=== PATIENT | female | born 1985 | race Caucasian/White ===

== ENCOUNTER 2017-03-05 07:14 | Inpatient (IN) ==
[2017-03-05] MEDS ORDERED: LACTATED RINGERS 1,000 ML IV ONE ×2 (07:45→12:55)
[2017-03-05] MEDS ORDERED: FAMOTIDINE 20 MG/2 ML VIAL IV ONE (08:07)
[2017-03-05] MEDS ORDERED: ceFAZolin 2,000 MG in PREMIX 1 EACH IV ONE (08:07)
[2017-03-05] MEDS ORDERED: CITRIC ACID/SODIUM CITRATE 30 ML UDCUP PO ONE (08:07)
[2017-03-05] MEDS ORDERED: OXYTOCIN 10 UNIT/ML VIAL IM ONE (08:11)
[2017-03-05] MEDS ORDERED: OXYTOCIN/LR 30 UNIT/1,000 ML BAG IV ONE (08:11)
[2017-03-05] MEDS ORDERED: LACTATED RINGERS 1,000 ML IV SCH ×2 (08:30→14:00)
[2017-03-05 08:46] LABS: Basophils # 0.1 10*3/uL (0.0-0.2); Basophils % 0.4 % (0.0-0.8); Eosinophils % 0.2 % (0.00-10.9); Hematocrit 32.1 VOL% (35.7-47.0); Hemoglobin 11.2 GM/DL (12.0-16.0); Immature Granulocytes % 0.8 %; Lymphocytes # 2.2 10*3/uL (1.4-4.0); Lymphocytes % 16.5 % (21.3-54.2); Mean Corpuscular HGB Conc 34.9 GM/DL (32-36); Mean Corpuscular Hemoglobin 32 PG (27-34); Mean Corpuscular Volume 92.5 FL (87-102); Mean Platelet Volume 10.8 FL (9.6-12.0); Monocytes # 0.9 10*3/uL (0.11-0.8); Monocytes % 6.9 % (1.7-12.7); Neutrophils # 9.9 10*3/uL (1.4-7.4); Neutrophils % 75.2 % (38.7-73.9); Platelet Count 310 T/CUMM (130-400); Red Blood Count 3.47 MC/CUMM (3.8-5.5); Red Cell Distribution Width 13.2 % (9.3-17.3); White Blood Count 13.2 T/CUMM (4-12)
[2017-03-05 09:12] LABS: Albumin 2.7 G/DL (3.4-5.0); Bilirubin,Total 0.4 MG/DL (0.2-1.0); Calcium 8.7 MG/DL (8.5-10.1); Osmolality,Calculated 269.8 MOS/KG (273-304); Potassium 3.8 MMOL/L (3.5-5.1); Total Protein 6.8 G/DL (6.4-8.3)
[2017-03-05] MEDS ORDERED: fentaNYL 100 MCG/2 ML VIAL ONE (10:31)
[2017-03-05] MEDS ORDERED: MORPHINE 10 MG/10 ML VIAL ONE (10:32)
[2017-03-05] MEDS ORDERED: ONDANSETRON 4 MG/2 ML VIAL ONE (10:33)
[2017-03-05] MEDS ORDERED: OXYTOCIN/LR 20 UNIT/1,000 ML BAG IV ONE ×2 (10:38→14:00)
[2017-03-05] MEDS ORDERED: ACETAMINOPHEN 325 MG TABLET PO PRN ×2 (10:38→14:00)
[2017-03-05] MEDS ORDERED: RHO(D) IMMUNE GLOBULIN 300 MCG SYRINGE IM ONE ×2 (10:38→14:00)
[2017-03-05] MEDS ORDERED: SIMETHICONE CHEW 80 MG TABLET PO PRN ×2 (10:38→14:00)
[2017-03-05] MEDS ORDERED: ONDANSETRON 4 MG/2 ML VIAL IV PRN ×2 (10:38→14:00)
[2017-03-05 10:48] LABS: Cord Arterial Blood HCO3 18.3 MMOL/L
[2017-03-05 10:51] LABS: Cord Venous Blood HCO3 20.6 MMOL/L; Cord Venous Blood PCO2 37.7 MMHG; Cord Venous Blood PO2 21.2
[2017-03-05 10:57] LABS: Cord Arterial Blood HCO3 20.9 MMOL/L
[2017-03-05 11:00] LABS: Cord Venous Blood PCO2 39.1 MMHG; Cord Venous Blood PO2 20.3
[2017-03-05 11:03] LABS: Apearance,Urine CLEAR (Clear); Bilirubin,Urine Negative (Negative); Blood, Urine Negative (Negative); Glucose,Urine (UA) Negative (Negative); Ketones,Urine Negative (Negative); Mucus,Urine Occasional /LPF (Occasional); Nitrite,Urine Negative (Negative); Protein,Urine Negative; Squamous Epithelial Cell,Urine Occasional /HPF (0-10); Urine Color Yellow (Yellow); Urine Specific Gravity 1.011 (1.001-1.035); WBC,Urine 1 /HPF (0-6)
[2017-03-05] MEDS ORDERED: ePHEDrine 50 MG/ML AMP ONE (11:46)
[2017-03-05] MEDS ORDERED: ePHEDrine 50 MG/ML AMP IV ONE (11:55)
[2017-03-05] MEDS: LACTATED RINGERS 1,000 ML IV SCH ×2 (13:16→19:20)
[2017-03-05] MEDS ORDERED: IBUPROFEN 800 MG TABLET PO PRN (14:00)
[2017-03-05] MEDS ORDERED: MAGNESIUM HYDROXIDE SUSP 30 ML UDCUP PO PRN (14:00)
[2017-03-05] MEDS: IBUPROFEN 800 MG TABLET PO PRN (17:41)
[2017-03-05] MEDS: ceFAZolin 1,000 MG in SYRINGE 1 EACH IV SCH (17:42)
[2017-03-05 20:37] LABS: Basophils % 0.2 % (0.0-0.8); Eosinophils % 0.1 % (0.00-10.9); Hematocrit 19.5 VOL% (35.7-47.0); Hemoglobin 6.8 GM/DL (12.0-16.0); Immature Granulocytes % 0.6 %; Immature Granulocytes Absolute 0.09 #; Lymphocytes # 2.4 10*3/uL (1.4-4.0); Lymphocytes % 16.6 % (21.3-54.2); Mean Corpuscular HGB Conc 34.9 GM/DL (32-36); Mean Corpuscular Hemoglobin 32 PG (27-34); Mean Corpuscular Volume 92.4 FL (87-102); Mean Platelet Volume 10.5 FL (9.6-12.0); Monocytes # 1.1 10*3/uL (0.11-0.8); Monocytes % 7.4 % (1.7-12.7); Neutrophils # 10.8 10*3/uL (1.4-7.4); Neutrophils % 75.1 % (38.7-73.9); Platelet Count 215 T/CUMM (130-400); Red Blood Count 2.11 MC/CUMM (3.8-5.5); Red Cell Distribution Width 13.2 % (9.3-17.3); White Blood Count 14.4 T/CUMM (4-12)
[2017-03-05] MEDS ORDERED: DOCUSATE SODIUM 100 MG CAPSULE PO SCH (21:00)
[2017-03-05] MEDS ORDERED: SODIUM CHLORIDE 0.9% 1,000 ML IV PRN (21:08)
[2017-03-06] MEDS: IBUPROFEN 800 MG TABLET PO PRN ×3 (01:22→19:54)
[2017-03-06] MEDS: ceFAZolin 1,000 MG in SYRINGE 1 EACH IV SCH (01:23)
[2017-03-06] MEDS: DOCUSATE SODIUM 100 MG CAPSULE PO SCH ×4 (04:37→21:02)
[2017-03-06 07:54] LABS: Basophils % 0.2 % (0.0-0.8); Eosinophils % 0.1 % (0.00-10.9); Hematocrit 23.9 VOL% (35.7-47.0); Hemoglobin 8.5 GM/DL (12.0-16.0); Immature Granulocytes % 0.8 %; Immature Granulocytes Absolute 0.09 #; Lymphocytes # 1.5 10*3/uL (1.4-4.0); Lymphocytes % 12.7 % (21.3-54.2); Mean Corpuscular HGB Conc 35.6 GM/DL (32-36); Mean Corpuscular Hemoglobin 32 PG (27-34); Mean Corpuscular Volume 91.2 FL (87-102); Mean Platelet Volume 10.1 FL (9.6-12.0); Monocytes # 1.2 10*3/uL (0.11-0.8); Neutrophils # 8.8 10*3/uL (1.4-7.4); Neutrophils % 76.2 % (38.7-73.9); Platelet Count 177 T/CUMM (130-400); Red Blood Count 2.62 MC/CUMM (3.8-5.5); Red Cell Distribution Width 13.9 % (9.3-17.3); White Blood Count 11.5 T/CUMM (4-12)
[2017-03-06] MEDS: FERROUS SULFATE 325 MG TABLET PO SCH ×3 (08:48→21:02)
[2017-03-06] MEDS: MAGNESIUM HYDROXIDE SUSP 30 ML UDCUP PO PRN ×2 (08:48→19:54)
[2017-03-06] MEDS: MULTIVITAMIN (PRENATAL) TABLET PO SCH (08:48)
[2017-03-06] MEDS ORDERED: MULTIVITAMIN (PRENATAL) TABLET PO SCH (09:00)
[2017-03-07] MEDS: IBUPROFEN 800 MG TABLET PO PRN ×2 (07:19→16:10)
[2017-03-07] MEDS: MULTIVITAMIN (PRENATAL) TABLET PO SCH (09:49)
[2017-03-07] MEDS: FERROUS SULFATE 325 MG TABLET PO SCH ×2 (09:49→20:50)
[2017-03-07] MEDS: DOCUSATE SODIUM 100 MG CAPSULE PO SCH ×2 (09:50→20:50)
[2017-03-07] MEDS: oxyCODONE/ACETAMINOPHEN 5-325 MG TABLET PO PRN (16:10)
[2017-03-07] MEDS ORDERED: WITCH HAZEL PADS 100/JAR TOP PRN (19:58)
[2017-03-07] MEDS ORDERED: HYDROCORTISONE 2.5% RECTAL CREAM 30 GM TUBE TOP PRN (19:59)
[2017-03-08] MEDS: oxyCODONE/ACETAMINOPHEN 5-325 MG TABLET PO PRN ×2 (04:53→10:33)
[2017-03-08 08:06] VITALS: BP 111/73
[2017-03-08] MEDS: DOCUSATE SODIUM 100 MG CAPSULE PO SCH (08:55)
[2017-03-08] MEDS: FERROUS SULFATE 325 MG TABLET PO SCH (08:55)
[2017-03-08] MEDS: MULTIVITAMIN (PRENATAL) TABLET PO SCH (08:55)
[2017-03-08] MEDS ORDERED: INFLUENZA VIRUS VACCINE 0.5 ML SYRINGE IM ONE (09:14)
[2017-03-08] MEDS: IBUPROFEN 800 MG TABLET PO PRN (10:32)
[2017-03-08] MEDS ORDERED: MEASLES/MUMPS/RUBELLA VACCINE 0.5 ML VIAL SUBCUT ONE (10:57)
[2017-03-08] MEDS ORDERED: DIPH/TET/ACEL PERT BOOSTER VACCINE 0.5 ML VIAL IM ONE (10:57)
== END 2017-03-08 13:50 | disposition home or self-care (01) | DRG 540 ==
LOC: N.LD 07:14 → N.OB 13:40
PROVIDERS: ADMIT Obstetrics & Gynecology; ATTEND Obstetrics & Gynecology
PROC: LDCSECT (ICD-10-PCS; 2017-03-05 09:00)